=== PATIENT | male | born 1955 | race African-American/Black ===

== ENCOUNTER 2016-11-01 15:28 | Emergency (ER) | payer OTHER ==
[~2016-11-01] VITALS: Ht 198.1 cm; Wt 77.1 kg
[~2016-11-01 15:28] MED LIST: ACETAMINOPHEN-1 EAC1 ORAL; AMOXICILLIN500 MG ORAL; ASPIRIN EC81 MG ORAL; IBUPROFEN600 MG ORAL; NAPROSYN500 M1 ORAL; PENICILLIN V P500 MG ORAL
[2016-11-01 16:08] VITALS: BP 110/76
[2016-11-01] MEDS ORDERED: Hydrogen Peroxide 473ml Bottle TOPIC ONE (16:21)
[2016-11-01] MEDS ORDERED: FLONASE ALLERG9.9 ML NS (16:35)
[2016-11-01] MEDS ORDERED: ZYRTEC10 MG ORAL (16:35)
--- NOTE | 2016-11-01 16:35 | Emergency Room Report ---
History of Present Illness General Chief Complaint: Sore Throat Source: Patient Present Illness HPI 61 y/o male c/o ear pain and sore throat x 4 days. States that he went to [place] and [place] having nasal congestion [place]. States sore throat comes and goes assoc w/ post nasal drip and that he feels like his ears are plugged. States he' s not taking medication for his sxs and has no other modifying factors. Denies any current n/v/f/c/d, abd pain, back pain, neck pain, photophobia, phonophobia , CP, SOB or headache. Allergies: Coded Allergies: No Known Allergies (Unverified , 02/17/14) Patient History Past Medical History: see triage record Past Surgical History: none Pertinent Family History: none Reviewed Nursing Documentation: PMH: Agreed, PSxH: Agreed Nursing Documentation-PMH Past Medical History: No Stated History Hx Cardiac Problems: Yes - HIGH CHOLESTEROL Review of Systems All Other Systems: negative except mentioned in HPI Physical Exam Vital Signs Date Time Temp Pulse Resp B/P Pulse Ox O2 Delivery O2 Flow Rate FiO2 11/01/16 15:41 98.4 76 14 110/76 99 Room Air Sp02 EP Interpretation: reviewed, normal General Appearance: no apparent distress, alert, GCS 15, non-toxic Head: normocephalic, atraumatic Eyes: bilateral eye PERRL, bilateral eye normal inspection ENT: hearing grossly normal, normal pharynx, no angioedema, normal voice, TMs + canals normal - bilateral cerumen impactions on initial insepction. TMs normal after irrigation, uvula midline, nasal congestion, other - post nasal drip Neck: full range of motion, supple/symm/no masses Respiratory: chest non-tender, lungs clear, normal breath sounds, speaking full sentences Cardiovascular #1: regular rate, rhythm, no edema Neurologic: alert, oriented x3, responsive, motor strength/tone normal, sensory intact, speech normal Psychiatric: judgement/insight normal, memory normal, mood/affect normal, no suicidal/homicidal ideation Skin: normal color, no rash, warm/dry, well hydrated Lymphatic: no adenopathy Medical Decision Making PA Attestation Dr. Barker is my supervising physician with whom patient management has been discussed with. Diagnostic Impression: Primary Impression: Impacted cerumen of both ears Additional Impression: URI with cough and congestion ER Course Pt. presents to the ED c/o ear pain & URI sxs Ddx considered but are not limited to URI, allergies, AOM, AOE, [place], Sinusitis, Eustachian tube dysfunction, cerumen impaction, TM Perf, Mastoiditis. Vital signs: are WNL, pt. is afebrile H&PE are most consistent with cerumen impaction with viral URI ORDERS: none required at this time, the diagnosis is clinical ED INTERVENTIONS: Bilateral Ear Lavage DISCHARGE: At this time pt. is stable for d/c to home. Will provide printed patient care instructions, and any necessary prescriptions. Care plan and follow up instructions have been discussed with the patient prior to discharge. Last Vital Signs Date Time Temp Pulse Resp B/P Pulse Ox O2 Delivery O2 Flow Rate FiO2 11/01/16 16:08 98.4 79 14 110/76 99 Room Air Status: unchanged Reevaluation Impression Last Vital Signs Date Time Temp Pulse Resp B/P Pulse Ox O2 Delivery O2 Flow Rate FiO2 11/01/16 16:42 98.4 79 14 110/76 99 Room Air Disposition: HOME, SELF-CARE Condition: Improved Scripts Cetirizine Hcl* (ZYRTEC*) 10 Mg Tablet 10 MG ORAL DAILY, #14 TAB 0 Refills Prov: SABRY,TAMEEM P.A. 11/01/16 Fluticasone Propionate (Flonase Allergy Relief) 9.9 Ml [place].susp 2 SPRAYS NS DAILY for 7 Days, #10 ML Prov: SABRY,TAMEEM P.A. 11/01/16 Patient Instructions: Cerumen Impaction, Upper Respiratory Infection, Adult Additional Instructions: Educated patient that the insides of the ears do not usually need to be cleaned and that sticking things into the ears such as q-tips can push the wax in deeper and cause impaction. Patient educated on different ways to remove ear wax which include: Ear drops Special ear drops can soften ear wax and help it to drain out. Ear drops are not usually safe for people with an ear infection or damage to the eardrum, Rinsing In some cases, a doctor or nurse can remove impacted ear wax by squirting water (or a special liquid) into the ear to rinse it out, and Special tools A doctor or nurse might use a special tool to remove ear wax. There are different types of tools that can do this safely. These include small sticks, hooks, and spoons. There are also tools that use suction to pull the wax out. Ear candling is sometimes advertised as a way to remove ear wax. This involves lighting one end of a hollow candle, and putting the other end in the ear. Ear candling has not been proven to work well, and can even cause injuries or nur. Advised patient to use salt water gargle PRN. Advised patient to use chloraseptic as needed for throat pain in addition to APAP Q4H. Patient advised they can take Ibuprofen and Tylenol Q6H together for fever control as well. Educated patient on rhinitis and encouraged patient to use OTC nasal decongestants, nasal irrigation / saline sprays, and use of nasal suction such as NoseFrida. Educated patient on the benefits of the various OTC medications available (ie. H1 blockers, decongestants, nasal steroids, etc.). If sxs worsen or don't improve, please return sooner. Go to the ER if you develop SOB, CP, Rash, photophobia, neck pain, throat swelling occur, go to the ER immediately. ROMI GIRON Nov 01, 2016 16:35
[2016-11-01 16:42] VITALS: BP 110/76
== END 2016-11-01 16:40 | disposition home or self-care (01) ==
LOC: EMR 16:19
DX: H61.23 Impacted cerumen, bilateral (principal); J06.9 Acute upper respiratory infection, unspecified; R05 Cough; R09.81 Nasal congestion
CPT/HCPCS: 69210; 99284

== ENCOUNTER 2016-12-21 16:42 | Emergency (ER) | payer OTHER ==
[~2016-12-21] VITALS: Ht 198.1 cm; Wt 77.1 kg
[~2016-12-21 16:42] MED LIST changes: +FLONASE ALLERG9.9 ML NS; +ZYRTEC10 MG ORAL
[2016-12-21 17:56] LABS: APPEARANCE,URINE SLIGHTLY CLOUDY; KETONES,URINE NEGATIVE (NEGATIVE); LEUKOCYTE ESTERASE ,URINE 3+ (NEGATIVE); NITRITE,URINE POSITIVE (NEGATIVE); PH,URINE 6 (4.5-8.0); PROTEIN,URINE 2+ (NEGATIVE); UROBILINOGEN,URINE 1 MG/DL (0.0-1.0)
--- NOTE | 2016-12-21 18:01 | Emergency Room Report ---
History of Present Illness General Chief Complaint: Male Urogenital Problems Present Illness HPI 61 YO Male presents to the ED c/O dysuria x 3 days. pt. denies penile d/c or testicular pain/swelling. pt. denies hx of prostate problems. denies N/V/F/C. pt. reports intermittent low back cramping that is 5/10 in severity. Pt. reports that he is and has not had any possible exposures to STI's. pt. denies hematuria, reports frequency and urgency. denies abdominal pain. Denies CP, Palpitations, LOC, AMS, dizziness, Changes in Vision, Sensation, paresthesias, or a sudden severe headache. Allergies: Coded Allergies: No Known Allergies (Unverified , 02/17/14) Patient History Past Medical History: see triage record Past Surgical History: none Pertinent Family History: none Immunizations: UTD Reviewed Nursing Documentation: PMH: Agreed, PSxH: Agreed Nursing Documentation-PMH Hx Cardiac Problems: Yes - HIGH CHOLESTEROL Review of Systems All Other Systems: negative except mentioned in HPI Physical Exam Vital Signs Date Time Temp Pulse Resp B/P Pulse Ox O2 Delivery O2 Flow Rate FiO2 12/21/16 16:53 101.3 104 20 123/77 98 Room Air Sp02 EP Interpretation: reviewed, abnormal - tachycardic and febrile General Appearance: no apparent distress, alert, GCS 15, non-toxic Head: normocephalic, atraumatic Eyes: bilateral eye PERRL, bilateral eye normal inspection ENT: hearing grossly normal, normal pharynx, no angioedema, normal voice Neck: full range of motion, supple/symm/no masses Respiratory: chest non-tender, lungs clear, normal breath sounds, speaking full sentences Cardiovascular #1: regular rate, rhythm, no edema Gastrointestinal: normal bowel sounds, non tender, soft, no guarding, no rebound Rectal: deferred Genitourinary: normal inspection, no CVA tenderness Musculoskeletal: back normal, gait/station normal, normal range of motion, non- tender Neurologic: alert, oriented x3, responsive, motor strength/tone normal, sensory intact, speech normal Psychiatric: judgement/insight normal, memory normal, mood/affect normal Skin: normal color, no rash, warm/dry, well hydrated Medical Decision Making PA Attestation Dr. Phan is my supervising Physician whom patient management has been discussed with. Diagnostic Impression: Primary Impression: Urinary tract infection Qualified Codes: N30.01 - Acute cystitis with hematuria ER Course 61 YO Male presents to the ED c/O dysuria x 3 days. pt. denies penile d/c or testicular pain/swelling. pt. denies hx of prostate problems. denies N/V/F/C. pt. reports intermittent low back cramping that is 5/10 in severity. Pt. reports that he is and has not had any possible exposures to STI's. pt. denies hematuria, reports frequency and urgency. denies abdominal pain. Denies CP, Palpitations, LOC, AMS, dizziness, Changes in Vision, Sensation, paresthesias, or a sudden severe headache. Ddx considered but are not limited to UTi , Pyelo, STI, Stone, Cystitis, prostatitis. BPH Vital signs: pt. febrile, and tachycardic in triage, fever resolved H&PE are most consistent with UTI ORDERS: - UA labs are attached - nitrite positive, elevated wbc's and leuks, bacteria is present and consistent with UTI ED INTERVENTIONS: - Pyridium PO -Keflex PO DISCHARGE: At this time pt. is stable for d/c to home. Will provide printed patient care instructions, and any necessary prescriptions. Care plan and follow up instructions have been discussed with the patient prior to discharge. Labs Test 12/21/16 16:55 Urine Color Yellow Urine Appearance Slightly cloudy Urine pH 6 (4.5-8.0) Urine Specific [place] 1.015 (1.005-1.035) Urine Protein 2+ (NEGATIVE) Urine Glucose (UA) Negative (NEGATIVE) Urine Ketones Negative (NEGATIVE) Urine Occult Blood 5+ (NEGATIVE) Urine Nitrite Positive (NEGATIVE) Urine Bilirubin Negative (NEGATIVE) Urine Urobilinogen 1 MG/DL (0.0-1.0) Urine Leukocyte Esterase 3+ (NEGATIVE) Urine RBC 10-15 /HPF (0 - 0) Urine WBC 5-10 /HPF (0 - 0) Urine Squamous Epithelial Cells None /LPF (NONE/OCC) Urine Amorphous Sediment Few /LPF (NONE) Urine Bacteria Moderate /HPF (NONE) Last Vital Signs Date Time Temp Pulse Resp B/P Pulse Ox O2 Delivery O2 Flow Rate FiO2 12/21/16 16:53 101.3 104 20 123/77 98 Room Air Disposition: HOME, SELF-CARE Condition: Stable Scripts Phenazopyridine Hcl* (PYRIDIUM*) 100 Mg Tablet 100 MG ORAL THREE TIMES A DAY for 3 Days, #9 TAB Prov: Sachi Isaacs 12/21/16 Cephalexin* (KEFLEX*) 500 Mg Capsule 500 MG ORAL EVERY 12 HOURS for 7 Days, #14 CAP 0 Refills Prov: Sachi Isaacs 12/21/16 Referrals: [facility] (PCP) Patient Instructions: Urinary Tract Infection Additional Instructions: Take medications as directed. Follow up with a Primary Care Provider in 3-5 days, even if your symptoms have resolved. --Please review list of primary care clinics, if you do not already have a primary care provider Return sooner to ED if new symptoms occur, or current symptoms become worse. - Please note that this Emergency Department Report was dictated using [employer] pick technology software, occasionally this can lead to erroneous entry secondary to interpretation by the dictation equipment. Sachi Isaacs Dec 21, 2016 18:01
[2016-12-21] MEDS ORDERED: Cephalexin 500mg cap ORAL ONE (18:15)
[2016-12-21 18:16] LABS: BACTERIA,URINE MODERATE /HPF
[2016-12-21 18:17] LABS: AMORPHOUS SEDIMENT,UR FEW /LPF
[2016-12-21] MEDS ORDERED: PHENAZOPYRIDIN100 MG ORAL (18:24)
[2016-12-21] MEDS ORDERED: CEPHALEXIN500 MG ORAL (18:24)
[2016-12-21 18:26] VITALS: BP 123/77
[2016-12-21 18:28] VITALS: BP 123/77
== END 2016-12-21 18:29 | disposition home or self-care (01) ==
LOC: EMR 17:50
DX: N30.01 Acute cystitis with hematuria (principal); E78.00 Pure hypercholesterolemia, unspecified
CPT/HCPCS: 81003; 87086; 87181; 99284